=== PATIENT | male | born 1940 | race Caucasian/White ===

== ENCOUNTER → 2017-08-22 07:24 | Outpatient (CLI) | payer MEDICARE, OTHER, SELFPAY ==
--- NOTE | 2017-08-22 08:00 | CT_ITS ---
STUDY: CT CHEST/THORAX WITHOUT CONTRAST REASON FOR EXAM: Male, 76 years old. Lung nodule follow-up. RADIATION DOSAGE (If Supplied By Facility): CTDIvol = ( 11.49 ) mGy, DLP = ( 362.73 ) mGycm TECHNIQUE: Transaxial imaging was performed without the administration of intravenous contrast material. Multiplanar coronal and sagittal images were reformatted. Individualized dose optimization techniques were used for this CT. COMPARISON: CT chest/thorax February 21, 2017. FINDINGS: Stable mild elevation of the right diaphragm. There are stable emphysematous changes of the lungs, most prominent in the upper lung zones. There are additional sites of subsegmental peripheral air trapping as well. There is stable irregular scarring in the superolateral right upper lobe, and chronic interstitial changes are noted in the periphery of the mid and lower lung mercado.. Stable 6 mm nodule in the posterolateral inferior left lower lobe. There is no demonstrated pleural abnormality. Normal heart and pericardium. There are stable mild calcifications of the coronary arteries. There is a benign-appearing 6.5 x 6.0 x 13 mm mid to low precarinal lymph node. Just below this is a benign appearing 14 x 8 x 15 mm node. There is a 2.9 x 2.0 x 0.8 cm right subcarinal lymph node, grossly unchanged. There are other nonspecific, subcentimeter mediastinal lymph nodes. Normal hilar regions. Normal unenhanced pulmonary arteries. There is stable calcification in the aortic valve annulus. There are stable degenerative changes of the thoracic spine. There is no demonstrated abnormality of the visualized upper abdomen. CT/Chest without Contrast IMPRESSION: 1. Stable noncalcified nodule in the posterior lateral inferior left lower lobe, as well as stable superolateral right upper lobe scarring. 2. Stable emphysematous changes predominating in the lung apices, as well as scattered sites of subsegmental peripheral air trapping. 3. Benign-appearing low pretracheal/pericarinal lymph nodes again noted. No new adenopathy. Electronically Signed: Jose David Kingsley MD at 19:03 EDT , Service support ,
== END ==
PROVIDERS: Family Provider Family Medicine; PCP Family Medicine; Visit Provider Internal Medicine Critical Care Medicine
DX: R91.1 Solitary pulmonary nodule (principal); J84.10 Pulmonary fibrosis, unspecified
CPT/HCPCS: 71250

== ENCOUNTER → 2017-11-28 09:44 | Outpatient (CLI) | payer MEDICARE, OTHER, SELFPAY ==
--- NOTE | 2017-11-28 14:28 | PFTCOMP ---
COMPLETE PULMONARY FUNCTION TEST INTERPRETATION Brief HPI: Patient is a 77 year old male, currently under the care of myself, who presents to [facility] for complete pulmonary function tests secondary to diagnosis of bronchiectasis. Respiratory therapist reports good effort and reproducible results. Interpretation: Forced expiration spirometry shows no large airways obstructive ventilatory defect with an FEV1 of 92% predicted. There is no significant bronchodilator response by ATS criteria. Spirograms are of good quality and plateau slowly, indicating slowly emptying areas of the lungs. The respiratory flow volume loop shows decreased expiratory flow rates at high lung volumes consistent with small airways obstruction. Lung volumes by body plethysmography show a decreased total lung capacity at 4.16 L, 70% predicted. All other lung volumes are reduced symmetrically. Diffusion capacity by carbon monoxide is slightly decreased at 53% predicted. The airway resistance is normal. Compared to previous pulmonary function tests from 10/27/2016, there has been a significant improvement in FEV1 and DLCO by 13% and 39% respectively. Impression: Mild restrictive ventilatory defect with a symmetric reduction diffusing capacity. There has been significant improvement compared to previous study.
== END ==
PROVIDERS: Family Provider Family Medicine; PCP Family Medicine; Visit Provider Internal Medicine Critical Care Medicine
DX: J47.9 Bronchiectasis, uncomplicated (principal); R91.1 Solitary pulmonary nodule; J84.10 Pulmonary fibrosis, unspecified; J96.11 Chronic respiratory failure with hypoxia
CPT/HCPCS: 94060; 94726; 94729

== ENCOUNTER → 2018-08-14 13:42 | Outpatient (CLI) | payer MEDICARE, OTHER, SELFPAY ==
--- NOTE | 2018-08-14 13:45 | CT_ITS ---
STUDY: CT CHEST WITHOUT CONTRAST REASON FOR EXAM: Male, 77 years old. Lung nodule follow-up. Hypertension and diabetes. RADIATION DOSAGE (If Supplied By Facility): CTDIvol = ( 16.49 ) mGy, DLP = ( 617.93 ) mGycm TECHNIQUE: Transaxial imaging was performed without the administration of intravenous contrast material. Coronal and sagittal 2-D MPR Individualized dose optimization techniques were used for this CT. COMPARISON: CT chest 08/22/2017, 02/21/2017, 11/04/2016. FINDINGS: Supraclavicular: Normal. Body wall soft tissues: Normal. Upper abdomen: Mild pancreatic atrophy. No acute process. Osseous structures: No acute process. Mediastinum: Normal esophagus. No mass or lymphadenopathy. Cardiovascular: Minimal coronary calcifications, no cardiomegaly, mild aortic valve annulus calcifications, nonaneurysmal ectasia of the ascending aorta and proximal arch 3.5 cm, nondilated central pulmonary arteries. Lungs: Generalized hyperlucency and hyperinflation with features of centrilobular emphysema at the apices, scattered subpleural reticulation, in a pattern consistent with smoking history. There is a small focus of spiculated scarring in the right upper lobe, apical lateral, image 29, stable. There is mild biapical pleural scar, stable. Left lower lobe solid appearing oval pulmonary nodule measuring 5.5 mm, unchanged since prior imaging of 11/04/2016. There are several additional small scattered foci of groundglass or reticular opacity intraparenchymal that are not substantially changed since imaging of August 22, 2017. The process of scattered and partially confluent groundglass opacity seen in the lungs on the study of 11/04/2016 has completely resolved. The airways are normal. CT/Chest without Contrast IMPRESSION: Solitary pulmonary nodule the left lung base is unchanged compared to imaging of 11/04/2016. Additional small foci of parenchymal groundglass and reticular opacity are unchanged since 08/22/2017 and are most consistent with interstitial scarring. COPD/emphysema. Follow-up low dose chest CT is recommended in 1 year for continued surveillance purposes, lung cancer screening. Electronically Signed: Gianni Pena MD at 10:58 EDT Tel , Service support ,
== END ==
PROVIDERS: Family Provider Family Medicine; PCP Family Medicine; Referring Provider Internal Medicine Critical Care Medicine; Visit Provider Internal Medicine Critical Care Medicine
DX: R91.1 Solitary pulmonary nodule (principal)
CPT/HCPCS: 71250

== ENCOUNTER → 2018-11-27 | Outpatient (CLI) | payer MEDICARE, OTHER, SELFPAY ==
[2018-09-14 10:24] VITALS: BMI 26.3
--- NOTE | 2018-11-27 15:36 | PFTCOMP_ITS ---
COMPLETE PULMONARY FUNCTION TEST INTERPRETATION Brief HPI: Patient is a 78 year old male, currently under the care of myself, who presents to [facility] for complete pulmonary function tests secondary to diagnosis of bronchiectasis. Respiratory therapist reports good effort and reproducible results. Interpretation: Forced expiration spirometry shows a moderate large airways obstructive ventilatory defect with an FEV1 of 67% predicted. There is no significant bronchodilator response by strict ATS criteria. Spirograms are of good quality and plateau normally. The respiratory flow volume loop shows decreased expiratory flow rates at high lung volumes consistent with small airways obstruction. Lung volumes by body plethysmography show a normal total lung capacity at 5.08 L, 86% predicted. All other lung volumes are within normal limits. Diffusion capacity by carbon monoxide is decreased at 53% predicted. The airway resistance is normal. Compared to previous pulmonary function tests from 10/27/2016, there is been a significant improvement in FEV1 and DLCO by 13% and 39% respectively. Impression: Irreversible moderate large airways obstructive ventilatory defect with symmetric reduction in diffusing capacity, but there has been some improvement compared to previous study.
== END | disposition home or self-care (01) ==
LOC: PSN 08:54
PROVIDERS: Family Provider Family Medicine; PCP Family Medicine; Referring Provider Internal Medicine Critical Care Medicine; Visit Provider Internal Medicine Critical Care Medicine
DX: J47.9 Bronchiectasis, uncomplicated (principal); J84.10 Pulmonary fibrosis, unspecified; J96.11 Chronic respiratory failure with hypoxia
CPT/HCPCS: 94060; 94726; 94729

== ENCOUNTER → 2018-12-07 | Outpatient (CLI) | payer MEDICARE, OTHER, SELFPAY ==
[2018-09-14 10:24] VITALS: BMI 26.3
[2018-12-07 12:08] VITALS: PULSE 104; PULSE 109; PULSE 110; PULSE 113; PULSE 114; PULSE 87; PULSE 88; O2SAT 89; O2SAT 90; O2SAT 92; O2SAT 95; O2SAT 96
--- NOTE | 2018-12-07 14:50 | PCM.PSN.6M ---
PSN 6 Minute Walk Test - 6 Minute Walk Test 6 Minute Walk Test: 6 Minute Walk Test PSN:6-Minute Walk Test Start: 12/07/18 12:08 Freq: Status: Active Protocol: RESP.6MINW Document 12/07/18 12:08 [facility] (Rec: 12/07/18 12:12 [facility] [id number]) 6 Minute Walk Test Date Performed 12/07/18 Time Performed 11:00 Height 7 in Weight: 78.018 kg Weight in Pounds 172.[address]: Gary Huang Assistive device used: None Pre-test Oxygen Delivery Method Room Air Pulse Ox (%) 96 Pulse Rate (60-100 beats/min) 87 Dyspnea Deepthi Scale (0-10) 0 1st minute Oxygen Delivery Method Room Air Pulse Ox (%) 95 Pulse Rate (60-100 beats/min) 104 H Dyspnea Deepthi Scale (0-10) 1 Number of Rests Taken 0 2nd minute Oxygen Delivery Method Room Air Pulse Ox (%) 92 Pulse Rate (60-100 beats/min) 110 H Dyspnea Deepthi Scale (0-10) 1 Number of Rests Taken 0 3rd minute Oxygen Delivery Method Room Air Pulse Ox (%) 90 Pulse Rate (60-100 beats/min) 114 H Dyspnea Deepthi Scale (0-10) 2 Number of Rests Taken 0 4th minute Oxygen Delivery Method Room Air Pulse Ox (%) 90 Pulse Rate (60-100 beats/min) 110 H Dyspnea Deepthi Scale (0-10) 2 Number of Rests Taken 0 5th minute Oxygen Delivery Method Room Air Pulse Ox (%) 89 Pulse Rate (60-100 beats/min) 109 H Dyspnea Deepthi Scale (0-10) 2 Number of Rests Taken 0 6th minute Oxygen Delivery Method Room Air Pulse Ox (%) 89 Pulse Rate (60-100 beats/min) 113 H Dyspnea Deepthi Scale (0-10) 2 Number of Rests Taken 0 Post-test Oxygen Delivery Method Room Air Pulse Ox (%) 96 Pulse Rate (60-100 beats/min) 88 Dyspnea Deepthi Scale (0-10) 0 Full Laps Walked 17 Partial Lap, Number of Tiles Walked 10 Total Distance Walked (ft) 1013 - Interpretation Interpretation: The patient was able to ambulate 1013 feet over the course of 6 minutes on room air with no assistive devices or breaks. The patient did have significant desaturation from a baseline of 96% to as low as 89% with some reflexive tachycardia. These signs are consistent with a respiratory limitation exercise tolerance. - Recommendations Recommendations: No supplemental oxygen is indicated at this time.
== END | disposition home or self-care (01) ==
LOC: PSN 10:46
PROVIDERS: Family Provider Family Medicine; PCP Family Medicine; Referring Provider Internal Medicine Critical Care Medicine; Visit Provider Internal Medicine Critical Care Medicine
DX: J47.9 Bronchiectasis, uncomplicated (principal); J84.10 Pulmonary fibrosis, unspecified
CPT/HCPCS: 94618

== ENCOUNTER → 2018-12-11 | Outpatient (CLI) | payer MEDICARE, OTHER, SELFPAY ==
[2018-12-11 09:45] VITALS: BMI 26.1
== END | disposition home or self-care (01) ==
LOC: PSN 10:45
PROVIDERS: Family Provider Family Medicine; PCP Family Medicine; Referring Provider Nurse Practitioner Acute Care; Visit Provider Nurse Practitioner Acute Care
DX: J47.9 Bronchiectasis, uncomplicated (principal)
CPT/HCPCS: 94667

== ENCOUNTER → 2019-05-02 11:21 | Outpatient (CLI) | payer MEDICARE, OTHER, SELFPAY ==
[2019-05-02 10:53] VITALS: BMI 26.1
[2019-05-02 12:19] LABS: Anion Gap 6 (5-15); BUN 15 mg/dL (7-18); BUN/Creat Ratio 11.4 RATIO (10-20); Calcium,Total 8.8 mg/dL (8.5-10.1); Chloride 107 mmol/L (98-107); Creatinine, Serum 1.32 mg/dL (0.70-1.30); EST Glomerular Filtration Rate 56 mL/min (>60); Est Glom Filt Rate - Afr Amer 67 mL/min (>60); Glucose 149 mg/dL (74-106); Potassium 3.9 mmol/L (3.5-5.1); Sodium Level 140 mmol/L (136-145)
== END ==
PROVIDERS: Family Provider Family Medicine; PCP Family Medicine; Referring Provider Nurse Practitioner Acute Care; Visit Provider Nurse Practitioner Acute Care
DX: R06.02 Shortness of breath (principal)
CPT/HCPCS: 36415; 80048

== ENCOUNTER → 2019-05-08 11:42 | Outpatient (CLI) | payer MEDICARE, OTHER, SELFPAY ==
[2019-05-02 10:53] VITALS: BMI 26.1
[2019-05-08 11:55] LABS: Hematocrit 49.3 % (40-54); Hemoglobin 16.3 g/dL (13.0-16.5); Mean Corp Hgb Conc 33.1 g/dL (32-36); Mean Corpuscular Hgb 32.3 pg (27.0-32.0); Mean Corpuscular Volume 97.8 fL (80-94); Mean Platelet Vol. 8.8 fl (6.2-12.0); Platelet Count 231 K/mm3 (150-450); RBC Distribution Width CV 13.2 % (11.6-14.6); RBC Distribution Width SD 47.4 fl (35.1-43.9); Red Blood Count 5.04 M/mm3 (4.6-6.2)
[2019-05-08 12:07] LABS: Anion Gap 6 (5-15); BUN 24 mg/dL (7-18); BUN/Creat Ratio 15.7 RATIO (10-20); Calcium,Total 8.5 mg/dL (8.5-10.1); Chloride 103 mmol/L (98-107); Creatinine, Serum 1.53 mg/dL (0.70-1.30); EST Glomerular Filtration Rate 47 mL/min (>60); Est Glom Filt Rate - Afr Amer 57 mL/min (>60); Glucose 245 mg/dL (74-106); Potassium 4.2 mmol/L (3.5-5.1); Sodium Level 136 mmol/L (136-145)
== END ==
PROVIDERS: Nurse Practitioner Acute Care; Family Provider Family Medicine; PCP Family Medicine; Referring Provider Internal Medicine Critical Care Medicine; Visit Provider Internal Medicine Critical Care Medicine
DX: R53.83 Other fatigue (principal)
CPT/HCPCS: 36415; 80048; 85027

== ENCOUNTER → 2020-04-09 13:24 | Outpatient (CLI) | payer MEDICARE, OTHER, SELFPAY ==
[2020-03-24 13:04] VITALS: BMI 26.3
[2020-04-09 13:45] VITALS: PULSE 100; PULSE 102; PULSE 105; PULSE 107; PULSE 109; PULSE 115; O2SAT 88; O2SAT 89; O2SAT 90; O2SAT 91; O2SAT 92; O2SAT 93; O2SAT 95
--- NOTE | 2020-04-09 14:00 | CPS ---
At the 5 minute denny pt was 88% on room air. Pt was placed back on his own portable O2 tank at 2 lpm pulse dose. Pt saturation came up to 93%Remainder of walk was on 2 lpm pulse dose. Pt stated he usually wears between 2-4lpm pulse dose.
--- NOTE | 2020-04-10 13:22 | WT_ITS ---
PSN 6 Minute Walk Test - 6 Minute Walk Test 6 Minute Walk Test: 6 Minute Walk Test PSN:6-Minute Walk Test Start: 04/09/20 13:56 Freq: Status: Active Protocol: RESP.6MINW Document 04/09/20 13:45 [facility] (Rec: 04/09/20 14:03 [facility] [id number]) 6 Minute Walk Test Date Performed 04/09/20 Time Performed 13:45 Height 5 ft 8 in Weight: 160 lb Weight in Pounds 160.[address]: Dr Huang Assistive device used: None Pre-test Oxygen Delivery Method Room Air Pulse Ox (%) 93 Pulse Rate (60-100 beats/min) 100 Dyspnea Deepthi Scale (0-10) 0 Exertion Deepthi Scale (6-20) 6 1st minute Oxygen Delivery Method Room Air Pulse Ox (%) 92 Pulse Rate (60-100 beats/min) 109 H 2nd minute Oxygen Delivery Method Room Air Pulse Ox (%) 90 Pulse Rate (60-100 beats/min) 105 H 3rd minute Oxygen Delivery Method Room Air Pulse Ox (%) 89 Pulse Rate (60-100 beats/min) 109 H 4th minute Oxygen Delivery Method Room Air Pulse Ox (%) 90 Pulse Rate (60-100 beats/min) 109 H 5th minute Oxygen Delivery Method Room Air Pulse Ox (%) 88 Pulse Rate (60-100 beats/min) 115 H Dyspnea Deepthi Scale (0-10) 2 Exertion Deepthi Scale (6-20) 11 6th minute Oxygen Flow Rate (L/min) (L/min) 2 Oxygen Delivery Method Nasal Cannula Pulse Ox (%) 91 Pulse Rate (60-100 beats/min) 107 H Dyspnea Deepthi Scale (0-10) 2 Exertion Deepthi Scale (6-20) 11 Post-test Oxygen Flow Rate (L/min) (L/min) 2 Oxygen Delivery Method Nasal Cannula Pulse Ox (%) 95 Pulse Rate (60-100 beats/min) 102 H Full Laps Walked 16 Partial Lap, Number of Tiles Walked 0 Total Distance Walked (ft) 944 04/09/20 14:00 Cardiopulmonary Services by Sybil Payan At the 5 minute denny pt was 88% on room air. Pt was placed back on his own portable O2 tank at 2 lpm pulse dose. Pt saturation came up to 93%Remainder of walk was on 2 lpm pulse dose. Pt stated he usually wears between 2-4lpm pulse dose. Initialized on 04/09/20 14:00 - END OF NOTE - Interpretation Interpretation: The patient ambulated 944 feet over the course of 6 minutes beginning on room air without assistive devices. Pretesting oxygen saturation was noted to be 93% on room air. With ambulation, the olya oxygen saturation was 88%. 2 L/min of pulse dose supplemental oxygen was applied and the patient was able to complete the remainder of the test while maintaining appropriate oxygen saturations. - Recommendations Recommendations: 2 L/min of pulsed dose supplemental oxygen should be utilized with exertion.
== END ==
PROVIDERS: PCP Family Medicine; Referring Provider Internal Medicine Critical Care Medicine; Visit Provider Internal Medicine Critical Care Medicine
DX: J96.11 Chronic respiratory failure with hypoxia (principal); J84.10 Pulmonary fibrosis, unspecified
CPT/HCPCS: 94618

== ENCOUNTER → 2020-04-17 12:41 | Outpatient (CLI) | payer MEDICARE, OTHER, SELFPAY ==
[2020-03-24 13:04] VITALS: BMI 26.3
--- NOTE | 2020-04-17 13:50 | ECHOCS_ITS ---
Version 2 Reason For Study: REBECCA, IONA Procedure This was a 2D Doppler, Color Flow transthoracic echocardiogram. The study was technically difficult. Exam performed in department. Left Ventricle Normal LV size. Left ventricular systolic function is normal. The estimated ejection fraction is 60 %. Stage 1 diastolic dysfunction. No regional wall motion abnormalities noted. Right Ventricle Normal RV size. Normal systolic function. Atria Normal left atrium. Normal right atrium. Mitral Valve Normal mitral valve. Tricuspid Valve Normal tricuspid valve. Unable to estimate RV systolic pressure due to insufficient tricuspid regurgitant envelope. Aortic Valve Trisinus/trileaflet aortic valve. Pulmonic Valve Normal pulmonic valve. Great Vessels Normal aortic root. The pulmonary artery is normal size. Normal inferior vena cava. Pericardium/Pleural No pericardial effusion. Medication 22 gauge I.V. with prn adaptor inserted into right arm. Performed a rapid injection of agitated mix of 9 cc saline and 1cc air to assess for atrial septal defect. Diluted definity 2.5ml given slow IV push to enhance endocardial definition. MMode/2D Measurements & Calculations LVIDd: 4.0 cm IVSd: 0.95 cm LVOT diam: 2.1 cm LVIDs: 2.4 cm LVPWd: 1.1 cm RVDd: 2.9 cm FS: 41.2 % LVOT area: 3.3 cm2 Ao root diam: 3.4 cm LAV(MOD-bp): 31.1 ml LA A4 area: 14.0 cm2 LAV(MOD-bp) Indexed: 16.8 ml/m2 LAV(MOD-sp2): 30.2 ml LAV(MOD-sp4): 30.8 ml LA dimension(2D): 3.8 cm RA A4 area: 13.5 cm2 Doppler Measurements & Calculations MV E max sandeep: 42.7 cm/sec Lat Peak E' Sandeep: 8.3 cm/sec Med Peak E' Sandeep: 4.6 cm/sec MV A max sandeep: 75.9 cm/sec E/E' lat: 5.1 E/E' med: 9.3 MV E/A: 0.56 Ao V2 max: 153.2 cm/sec LV V1 max: 77.3 cm/sec PA V2 max: 88.7 cm/sec Ao max P.4 mmHg LV V1 max P.4 mmHg ANN(V,D): 1.7 cm2 Interpretation Summary Normal LV size. Left ventricular systolic function is normal. The estimated ejection fraction is 60 %. Stage 1 diastolic dysfunction. Contrast injection was performed. Ordering Physician: Gary Huang Referring Physician: Nicolas Castro Performed By: Cathy Delong RDCS
--- NOTE | 2020-04-17 16:03 | PFTCOMP_ITS ---
COMPLETE PULMONARY FUNCTION TEST INTERPRETATION Brief HPI: Patient is an 79 year old male, currently under the care of myself, who presents to [facility] for complete pulmonary function tests secondary to diagnosis of pulmonary hypertension. Respiratory therapist reports good effort and reproducible results. Interpretation: Forced expiration spirometry shows a mild large airways obstructive ventilatory defect with an FEV1 of 74% predicted. There is no significant bronchodilator response by strict ATS criteria. Spirograms are of good quality and plateau slowly, indicating slowly emptying areas of the lungs. The respiratory flow volume loop shows decreased expiratory flow rates at all lung volumes consistent with airway obstruction. Lung volumes by body plethysmography show a normal total lung capacity at 5.5 L, 93% predicted. All other lung volumes are within normal limits. Diffusion capacity by carbon monoxide is at the lower limit of normal at 63% predicted. The airway resistance is normal. Compared to previous pulmonary function tests from 11/27/2018, there is a significant improvement in FVC and DLCO by 29% and 12% respectively. Impression: Irreversible mild large airways obstructive ventilatory defect with a symmetric reduction diffusion capacity and significant improvement compared to previous study.
== END ==
PROVIDERS: PCP Family Medicine; Referring Provider Internal Medicine Critical Care Medicine; Visit Provider Internal Medicine Critical Care Medicine
DX: I27.21 Secondary pulmonary arterial hypertension (principal); J84.10 Pulmonary fibrosis, unspecified; J96.11 Chronic respiratory failure with hypoxia
CPT/HCPCS: 93306; 94060; 94726; 94729; Q9957; A4216; C8929

== ENCOUNTER 2022-02-11 12:10 | Emergency (ER) | payer MEDICARE, OTHER, SELFPAY ==
[2022-02-11 12:12] VITALS: BP 188/104; PULSE 85; RESP 16; TEMP 36.6; O2SAT 95; BMI 24.4
--- NOTE | 2022-02-11 12:15 | EDS_ITS ---
HPI History of Present Illness Chief Complaint: Neuro S/Sx Detail of Chief Complaint: Ischial droop right side Informant: patient and spouse/S.O. Onset/Context/Timing Onset: Yesterday Context: Sudden Onset Timing: Continuous Quality: Difficult drinking out of glass, facial asymmetry Location: Right side Current Severity: Moderate Maximum Severity: Moderate Worsened by: Nothing Relieved by: Nothing Associated Symptoms Associated Symptoms: No rash or complaint of ear pain to suggest Bairoil Liao syndrome. Narrative Narrative: Patient is an 81-year-old male with history of pulmonary fibrosis, benign prostatic hypertrophy, type 2 diabetes on insulin with poor control who presents with facial droop that started last evening. He denies visual, ocular auditory symptoms. No trouble with speech or swallowing. He denies symptoms in his upper or lower extremities. He denies cardiac respiratory symptoms. He denies history of TIA or CVA. There is a history of hypertension. Prior similar symptoms: No Recent Illness/Hospitalization: No [facility] Medical History (Updated 02/11/22 @ 12:[address] Owen Padilla MD) Chronic hypoxemic respiratory failure TRUJILLO (dyspnea on exertion) GERD (gastroesophageal reflux disease) Hypoxemia Long-term current use of steroids Lung nodule Pneumonia Pulmonary fibrosis Rheumatoid arthritis Type 2 diabetes mellitus Home Medications Lactobacills gasseri-Bifidobac bifidum,longum 1.5 billion cell capsule (Wantworthy) 1 cap PO QDAY 05/18/17 [History Last Taken Unknown] aspirin 81 mg tablet,delayed release (Adult Aspirin Regimen) 81 mg PO QDAY 05/18/17 [History Last Taken Unknown] losartan 50 mg tablet (Cozaar) 50 mg PO QDAY 05/18/17 [History Last Taken Unknown] metformin 500 mg tablet (Glucophage) 500 mg PO QDAY 05/18/17 [History Last Taken Unknown] multivitamin (Multiple Vitamins tablet) 1 tab PO QDAY 05/18/17 [History Last Taken Unknown] potassium chloride 10 mEq tablet,extended release (K-Tab) 10 meq PO QDAY 05/18 [History Last Taken Unknown] sitagliptin 100 mg tablet (Januvia) 100 mg PO QDAY 05/18/17 [History Last Taken Unknown] tamsulosin 0.4 mg capsule (Flomax) 0.4 mg PO QDAY 05/18/17 [History Last Taken Unknown] Acapella #1 ea 06/19/17 [Rx Last Taken Unknown] insulin glargine 100 unit/mL (3 mL) subcutaneous pen (Basaglar KwikPen U-100 Insulin) 38 unit subcut QDAY 08/29/17 [History Last Taken Unknown] ketoconazole 2 % shampoo 1 applic topical 2XW PRN 08/29/17 [History Last Taken Unknown] triamcinolone acetonide 0.1 % topical cream 1 applic topical QDAY PRN PCP 08/29/17 [History Last Taken Unknown] insulin aspart U-100 100 unit/mL subcutaneous solution (Novolog U-100 Insulin aspart) 4 unit subcut QACDINNER 09/14/18 [History Last Taken Unknown] PEP device #1 ea 12/11/18 [Rx Last Taken Unknown] prednisone 2.5 mg tablet 2.5 mg PO DAILY 12/11/18 [History Last Taken Unknown] benzonatate 200 mg capsule 200 mg PO TID PRN cough #90 caps 05/10/21 [Rx Last Taken Unknown] erythromycin 5 mg/gram (0.5 %) eye ointment 1 applic RIGHT EYE QHS #3.5 grams 02/11/22 [Rx Last Taken Unknown] Allergy/AdvReac Type Severity Reaction Status Date / Time acetaminophen AdvReac Mild Nausea Verified 02/11/22 12:15 [From Darvocet-N] oxycodone [From Percocet] AdvReac Mild Nausea Verified 02/11/22 12:15 propoxyphene AdvReac Mild Nausea Verified 02/11/22 12:15 [From Darvocet-N] [id number] Reductase AdvReac Mild Other - Verified 02/11/22 12:15 Inhibitor muscle [Mamgfdm-Wbl-Rpv Reductase weakness Inhibitor] Surgical History Hernia Social History (Updated 02/11/22 @ 12:[address] Owen Padilla MD) household members: spouse Smoking Status: Former smoker quit date: 05/22/89 pack-years: 30 how long ago did patient quit smokin second hand exposure: No alcohol intake: never substance use type: does not use ROS ROS ED Constitutional Constitutional ED: Denies chills, fever(s), subjective, sweats or weight loss Eyes Eyes: Denies blurry vision, change in vision or diplopia ENT ENT ED: Reports other Details: He denies drainage from the ear or rash involving the ear or face. ; Denies ear pain, rhinorrhea or sore throat Cardiovascular Cardiovascular: Denies chest pain, palpitations or racing heartbeat Respiratory/Chest Respiratory/Chest: Denies cough, dyspnea or dyspnea on exertion Gastrointestinal Gastrointestinal: Denies abdominal pain, nausea or vomiting Musculoskeletal Musculoskeletal: Denies arthralgias, back pain, myalgias or neck pain Neurologic Neurologic: Reports paresthesias; Denies headache(s) or weakness EXAM Physical Exam Const Vital Signs: 02/11/22 12:12 Temperature 97.9 F Temperature Source Temporal Pulse Rate 85 Respiratory Rate 16 Blood Pressure 188/104 H Blood Pressure Mean 132 Pulse Ox 95 Oxygen Delivery Method Room Air Positive well nourished and well developed General Appearance ED: well developed and NAD; Negative for cyanotic, diaphoretic or pallor HEENT Reports TM's clear and moist mucous membranes HEENT Narrative: Patient has facial asymmetry. The wrinkles are more prominent on the left side versus right. There is a lid lag with blinking of his eyes on the right. He has a facial droop on the right. There is no rash noted. There is no abnormality external auditory canal. Negative for trauma Tympanic Membrane ED: Yes TM's clear Eyes PERRL and EOMs intact bilaterally General Eye ED: Negative for pale conjunctiva or scleral icterus Neck no lymphadenopathy, supple and no JVD Neck Narrative: There is no carotid bruits noted right or left. Chest Wall inspection of chest normal and palpation of chest normal Resp normal respiratory effort and clear to auscultation bilaterally Cardio regular rate, regular rhythm, S1 normal heart sound, S2 normal heart sound and no murmurs GI normal to inspection, nondistended, normoactive bowel sounds, non-tender, non- distended and hepatosplenomegaly Neuro oriented x3, No CN's II-XII intact bilaterally and No no sensory deficits noted Neuro Narrative: Facial asymmetry on the right consistent with Contreras's palsy. Sensorium / Orientation: alert; Negative for orientation impaired, lethargic or stuporous Motor Exam: strength 5/5 throughout Psych mental status grossly normal Skin no rashes or lesions noted, no wounds and skin turgor normal General Skin Exam: Negative for jaundice or pallor MDM MDM MDM Narrative Medical decision making narrative: Differential diagnosis be atypical presentation for stroke, Contreras's palsy Bairoil Liao syndrome. Since patient has no ear pain or lesions Bairoil Liao has been ruled out. Since patient findings are limited to the face only and there is no sparing of the forehead he was treated for Contreras's palsy. Since he is a poorly controlled diabetic he was not discharged with burst of steroids. Since there is no skin lesions he was not prescribed antiviral medication. Discharge Plan Triage Chief Complaint: Neuro S/Sx ED Provider: Owen Padilla Dx/Rx/DC Orders Clinical Impression: Right-sided Contreras's palsy Instructions: ED Contrreas's Palsy Prescriptions: New erythromycin 5 mg/gram (0.5 %) ointment 1 applic RIGHT EYE QHS Qty: 3.5 1RF Rx Instructions: After instilling ointment tape right eyelid shot No Action metformin [Glucophage] 500 mg tablet 500 mg PO QDAY sitagliptin [Januvia] 100 mg tablet 100 mg PO QDAY losartan [Cozaar] 50 mg tablet 50 mg PO QDAY potassium chloride [K-Tab] 10 mEq tablet extended release 10 meq PO QDAY tamsulosin [Flomax] 0.4 mg capsule,extended release 24hr 0.4 mg PO QDAY L. gasseri-B. bifidum-B longum [Wantworthy] 1.5 billion cell capsule 1 cap PO QDAY aspirin [Adult Aspirin Regimen] 81 mg tablet,delayed release (DR/EC) 81 mg PO QDAY multivitamin [Multiple Vitamins] tablet 1 tab PO QDAY insulin glargine [Basaglar KwikPen U-100 Insulin] 100 unit/mL (3 mL) insulin pen 38 unit SC QDAY triamcinolone acetonide 0.1 % cream 1 applic TOPICAL QDAY PRN (Reason: PCP) ketoconazole 2 % shampoo 1 applic TOPICAL 2XW PRN Novolog U-100 Insulin aspart 100 unit/mL solution 4 unit SC QACDINNER prednisone 2.5 mg tablet 2.5 mg PO DAILY (DME) PEP device 0 .ROUTE .MEDSUPPLY Qty: 1 0RF Rx Instructions: with training benzonatate 200 mg capsule 200 mg PO TID PRN (Reason: cough) Qty: 90 0RF (DME) Acapella 0 .MEDSUPPLY Qty: 1 0RF Rx Instructions: As directed Primary Care Provider: Nicolas Castro Referrals: Nicolas Castro MD [Primary Care Provider] - 1-2 Weeks Activity Restrictions/Additional Instructions: 1. Instill ophthalmic ointment into the right eye at night and tape your eyelid shut. You will need to do this until you are eyelid is able to close on its own. This to prevent injury to your eye. 2. Instill artificial tears every 1-2 hours while awake right eye Disposition Disposition: Home, Self Care
[2022-02-11 12:21] VITALS: BP 155/95; PULSE 84; RESP 16; O2SAT 93; BMI 24.4
== END 2022-02-11 12:43 | disposition home or self-care (01) ==
PROVIDERS: Emergency Provider Emergency Medicine; PCP Family Medicine; Visit Provider Emergency Medicine
DX: G51.0 Bell's palsy (principal); E11.9 Type 2 diabetes mellitus without complications; I10 Essential (primary) hypertension; Z87.891 Personal history of nicotine dependence; Z79.82 Long term (current) use of aspirin; Z79.899 Other long term (current) drug therapy; Z79.84 Long term (current) use of oral hypoglycemic drugs; Z79.52 Long term (current) use of systemic steroids
CPT/HCPCS: 99282

== ENCOUNTER 2022-04-12 12:34 | Emergency (ER) | payer MEDICARE, OTHER, SELFPAY ==
[2022-04-12 12:35] VITALS: PULSE 52; RESP 16; TEMP 36.2; O2SAT 98; BMI 24.3
--- NOTE | 2022-04-12 14:44 | RAD_ITS ---
STUDY: XR Chest 1 View 04/12/2022 3:07 PM REASON FOR EXAM: Male, 81 years old. CHEST PAIN weakness COMPARISON: None TECHNIQUE: XR Chest 1 View FINDINGS: There is no demonstrated pleural abnormality. Normal heart size. Normal mediastinum. Normal regina. Prominent appearing increased interstitial lung markings. Normal visualized pulmonary arteries. There is atherosclerotic calcification of the aortic arch with tortuosity. There are diffuse degenerative changes of the visualized thoracic spine. There is degenerative osteoarthritis of the bilateral shoulders. There is no demonstrated abnormality of the visualized soft tissue structures of the upper abdomen. RAD/Chest 1 View (Portable) IMPRESSION: There are no acute findings. Electronically Signed: Jose Valdivia MD at 15:42 EST ,
--- NOTE | 2022-04-12 14:45 | EKG12_ITS ---
Test Reason : GENERAL Blood Pressure : / mmHG Vent. Rate : 089 BPM Atrial Rate : 089 BPM P-R Int : 202 ms QRS Dur : 090 ms QT Int : 366 ms P-R-T Axes : 029 -14 -11 degrees QTc Int : 445 ms Normal sinus rhythm Minimal voltage criteria for LVH, may be normal variant ( R in aVL ) Nonspecific ST abnormality Abnormal ECG Confirmed by KIRA AREVALO, SONDRA ([id number]), publication editor CHARAN CERDA ([id number]) on 04/13/2022 9:20:20 AM Referred By: Confirmed By:SONDRA MALONE MD
--- NOTE | 2022-04-12 14:46 | EX.ED.DYSGE1 ---
HPI History of Present Illness Chief Complaint: General Illness Informant: patient and family Onset/Context/Timing Onset: Days Context: Gradual Onset Current Severity: Mild Maximum Severity: Mild Narrative Narrative: 81-year-old male history of pulmonary fibrosis and insulin-dependent diabetes. states he does not listen and is not taking care of himself. She states he does not check his blood sugars enough. She does not believe he is taking his medications as prescribed. And states he is not drinking enough water. He denies any complaints. She wants him evaluated. He denies any headache, chest pain, abdominal pain. He denies any nausea, vomiting or diarrhea. He denies any fever or melena. He denies any dysuria. Prior similar symptoms: No Recent Illness/Hospitalization: No [facility] Medical History (Updated 04/12/22 @ 17:[address] Josh Pedro MD) Chronic hypoxemic respiratory failure TRUJILLO (dyspnea on exertion) GERD (gastroesophageal reflux disease) Hypoxemia Long-term current use of steroids Lung nodule Pneumonia Pulmonary fibrosis Rheumatoid arthritis Type 2 diabetes mellitus Home Medications aspirin 81 mg tablet,delayed release (Adult Aspirin Regimen) 81 mg PO QDAY 05/18/17 [History Last Taken Unknown] metformin 500 mg tablet (Glucophage) 500 mg PO QDAY 05/18/17 [History Last Taken Unknown] potassium chloride 10 mEq tablet,extended release (K-Tab) 10 meq PO QDAY 05/18/17 [History Last Taken Unknown] sitagliptin phosphate 100 mg tablet (Januvia) 100 mg PO QDAY 05/18/17 [History Last Taken Unknown] tamsulosin 0.4 mg capsule (Flomax) 0.4 mg PO QDAY 05/18/17 [History Last Taken Unknown] Acapella #1 ea 06/19/17 [Rx Last Taken Unknown] ketoconazole 2 % shampoo 1 applic topical 2XW PRN 08/29/17 [History Last Taken Unknown] PEP device #1 ea 12/11/18 [Rx Last Taken Unknown] prednisone 2.5 mg tablet 2.5 mg PO DAILY 12/11/18 [History Last Taken Unknown] insulin aspart U-100 100 unit/mL subcutaneous solution (Novolog U-100 Insulin aspart) 48 unit subcut HS 02/24/22 [History Last Taken Unknown] insulin glargine 100 unit/mL (3 mL) subcutaneous pen (Basaglar KwikPen U-100 Insulin) 48 unit subcut QDAY 02/24/22 [History Last Taken Unknown] Allergy/AdvReac Type Severity Reaction Status Date / Time acetaminophen AdvReac Mild Nausea Verified 04/12/22 12:38 [From Darvocet-N] oxycodone [From Percocet] AdvReac Mild Nausea Verified 04/12/22 12:38 propoxyphene AdvReac Mild Nausea Verified 04/12/22 12:38 [From Darvocet-N] Dgviume-SND-MvZ Reductase AdvReac Mild Other - Verified 04/12/22 12:38 Inhibitor muscle [Tqddzcc-Fkp-Uyy Reductase weakness Inhibitor] Surgical History Hernia Social History household members: spouse Smoking Status: Former smoker quit date: 05/22/89 pack-years: 30 how long ago did patient quit smokin second hand exposure: No alcohol intake: never substance use type: does not use ROS ROS ED ROS Narrative Patient denies being ill. Review of Systems ROS Unobtainable: Denies due to encephalopathy Constitutional Constitutional ED: Denies chills or fever(s) Eyes Eyes: Denies blurry vision ENT ENT ED: Denies ear pain Cardiovascular Cardiovascular: Denies chest pain Respiratory/Chest Respiratory/Chest: Denies cough or dyspnea Gastrointestinal Gastrointestinal: Denies abdominal pain, diarrhea, melena, nausea or vomiting Genitourinary Genitourinary ED: Denies dysuria or hematuria Musculoskeletal Musculoskeletal: Denies arthralgias Integumentary Denies abscess Neurologic Neurologic: Denies headache(s) Psychiatric Psychiatric: Denies anxiety Endocrine Endocrinology: Denies cold intolerance Hematologic/Lymphatic Hematologic/Lymphatic: Reports none Allergic/Immunologic Allergic/Immunologic ED: Denies mouth swelling or tongue swelling EXAM Physical Exam Narrative Exam Narrative: Well-appearing 81-year-old male. Vital signs stable afebrile. Pulse ox 90% on 2 L no signs hypoxia. H EENT exam mild dry mucous members. Otherwise unremarkable. Pupils are reactive light his motions are intact. No facial droop. Normal speech. Atraumatic. Neck nontender. Lungs clear to auscultation bilaterally. Heart regular rhythm rate about 55 no murmur. Chest wall nontender. Abdomen soft nontender. Moving all 4 extremities. 5 out of 5 airport operations specialist strength. Dorsi plantarflexion intact. Nontender. No edema. Back nontender. Neurologically is awake and alert with no focal motor deficits. Const Vital Signs: 04/12/22 12:35 04/12/22 14:37 04/12/22 16:11 Temperature 97.1 F L Temperature Source Temporal Pulse Rate 52 L 98 Respiratory Rate 16 14 Respiratory Effort Normal Respiratory Pattern Normal Blood Pressure 142/59 H Blood Pressure Mean 86 Pulse Ox 98 99 Oxygen Delivery Method Nasal Cannula Oxygen Flow Rate (L/min) 2 Positive well nourished and well developed; Negative for obese, cachectic, contractures or unkempt General Appearance ED: well developed and NAD; Negative for unkempt, cachectic, contractures, cyanotic or diaphoretic Nutritional Appearance: Negative for cachectic or obese HEENT Reports moist mucous membranes; Denies TM's clear or dry mucous membranes Negative for trauma or tenderness Tympanic Membrane ED: Negative for TM's clear Mouth ED: No dry mucous membranes Mouth: No dry mucous membranes Eyes EOMs intact bilaterally General Eye ED: Negative for pale conjunctiva or scleral icterus Neck no lymphadenopathy, supple and no JVD General: Negative for tenderness Lymph Lymphatic: Negative for other Chest Wall inspection of chest normal and palpation of chest normal Chest: Negative for other Resp normal respiratory effort and clear to auscultation bilaterally Effort and Inspection: Negative for retractions Auscultation: Negative for rales, rhonchi, wheezes or diminished lung sounds Cardio regular rhythm, S1 normal heart sound, S2 normal heart sound and no murmurs; Negative for regular rate Rate: bradycardia Rhythm: Negative for abnormal rhythm GI normal to inspection, nondistended, normoactive bowel sounds, non-tender, non-distended and no masses Inspection: Negative for abdominal distention Auscultation: normoactive bowel sounds Palpation: soft; Negative for tender, guarding or mass Back/Spine no CVA tenderness General Back: Negative for CVA tenderness Cervical Spine: Negative for cervical spine tenderness Thoracic Spine / Upper Back: Negative for thoracic spinal tenderness Lumbar Spine / Lower Back: Negative for lumbar spinal tenderness Extremity normal to inspection General Extremety ED: Negative for edema or tenderness General Extremity: Negative for edema Neuro oriented x3 and CN's II-XII intact bilaterally Sensorium / Orientation: alert; Negative for orientation impaired, lethargic or stuporous Motor Exam: strength 5/5 throughout; Negative for general weakness Psych mental status grossly normal Appearance: Negative for unkempt Attitude: No agitated Mood & Affect: Negative for depressed, anxious or tearful Skin no rashes or lesions noted and no wounds General Skin Exam: Negative for elasticity normal Lesions: No lesion noted Rashes: No rashes noted Trauma: Negative for abrasion Wounds: Negative for wounds noted MDM MDM MDM Narrative Medical decision making narrative: 81-year-old male no acute distress. Exam benign other than possibly mildly dehydrated. He has had no recent illness. His does not think he is taking care of himself well but his exam is benign. He is diabetic his blood sugar today is 217. Screening labs will be obtained. To be treated with IV fluids. Repeat exam patient doing well at 5:47 PM. I went over test results of both he and his . They are comfortable with him being discharged home with outpatient follow-up. Check his blood sugars. Increase his fluid intake. Lab Data Attestation: I reviewed the patient's lab results. Lab results narrative: Electrolytes is sodium 132 gap is 7 BUN and creatinine 28 1.48 consistent with mild dehydration. Glucose 188 on the CMP. Liver enzymes unremarkable. CBC shows a white count of 9.1 H&H of 15 and 46. Platelets of 211. Labs: Laboratory Results - last 24 hr 04/12/22 04/12/22 04/12/22 14:45 15:00 15:00 WBC 9.1 RBC 5.03 Hgb 15.9 Hct 46.5 MCV 92.4 MCH 31.6 MCHC 34.2 RDW Std Deviation 44.1 H RDW Coeff of Whitney 13.1 Plt Count 211 MPV 9.1 Immature Gran % (Auto) 1.600 H Neut % (Auto) 65.4 Lymph % (Auto) 12.3 L [place] % (Auto) 20.4 H Eos % (Auto) 0.0 Baso % (Auto) 0.3 Absolute Neuts (auto) 5.9 Absolute Lymphs (auto) 1.12 Nucleated RBC % 0 Differential Comment SEE COMMENT Platelet Estimate ADEQUATE RBC Morphology N CHROM Anisocytosis RARE Macrocytosis RARE Sodium 132 L Potassium 4.9 Chloride 100 Carbon Dioxide 25.0 Anion Gap 7 BUN 28 H Creatinine 1.48 H Estim Creat Clear Calc 37.23 Est GFR (MDRD) Af Amer 58 L Est GFR (MDRD) Non-Af 48 L BUN/Creatinine Ratio 18.9 Glucose 188 H Calcium 8.8 Total Bilirubin 1.00 AST 74 H ALT 43 Alkaline Phosphatase 142 H Total Protein 8.0 Albumin 3.2 Globulin 4.8 H Albumin/Globulin Ratio 0.7 L POC Glucose 217 H Radiography Chest X-Ray - ED: 1 View, Read by ED Physician, Heart, Lungs, Mediastinum, Bony Structures, No Acute Disease and Chronic Changes Diagnostic Testing: Clinical Impression(s) from Imaging Studies Chest X-Ray 04/12/22 14:44 IMPRESSION: There are no acute findings. Electronically Signed: Jose Valdivia MD at 15:42 EST , Chest x-ray, portable, single view interpreted by myself shows no acute abnormality. Normal cardiac silhouette. Chronic changes consistent with pulmonary fibrosis. No infiltrate. Rhythm Strip Rhythm Strip: Sinus Rhythm Rate: 89 Ectopy: None EKG Initial EKG: Attestation: I personally reviewed and interpreted this EKG as follows: Interpretation: Sinus Rhythm and No Acute Injury Pattern Comments: Pull off normal sinus rhythm rate 82 no acute signs of RI or ischemia. No dysrhythmia. Discharge Plan Triage Chief Complaint: General Illness ED Provider: Josh Pedro Dx/Rx/DC Orders Clinical Impression: Hyperglycemia due to diabetes mellitus, Acute dehydration Instructions: Dehydration Prescriptions: No Action metformin [Glucophage] 500 mg tablet 500 mg PO QDAY sitagliptin phosphate [Januvia] 100 mg tablet 100 mg PO QDAY potassium chloride [K-Tab] 10 mEq tablet extended release 10 meq PO QDAY tamsulosin [Flomax] 0.4 mg capsule,extended release 24hr 0.4 mg PO QDAY aspirin [Adult Aspirin Regimen] 81 mg tablet,delayed release (DR/EC) 81 mg PO QDAY ketoconazole 2 % shampoo 1 applic TOPICAL 2XW PRN (Reason: ) insulin glargine [Basaglar KwikPen U-100 Insulin] 100 unit/mL (3 mL) insulin pen 48 unit SC QDAY Novolog U-100 Insulin aspart 100 unit/mL solution 48 unit SC HS prednisone 2.5 mg tablet 2.5 mg PO DAILY (DME) PEP device 0 .ROUTE .MEDSUPPLY Qty: 1 0RF Rx Instructions: with training (DME) Acapella 0 .MEDSUPPLY Qty: 1 0RF Rx Instructions: As directed Primary Care Provider: Nicolas Castro Referrals: Nicolas Castro MD [Primary Care Provider] - 1-2 Weeks Activity Restrictions/Additional Instructions: Plenty of fluids and rest. You should be drinking at least 3 glasses of water a day. 8 ounce glasses. Check your blood sugars at least once if not twice daily at minimum. Take your medications as prescribed. Follow-up with your doctor. Disposition Disposition: Home, Self Care
[2022-04-12] MEDS: 0.9% Normal Saline 1,000 ML 1000 ML IV (14:59)
[2022-04-12 15:05] LABS: Bedside Glucose 217 mg/dL (74-106)
[2022-04-12 15:11] LABS: Absolute Lymphocyte Count 1.12 X10^3/uL (0.83-4.51); Absolute Neutrophil Count 5.9 X10^3/uL (2.0-7.7); Basophil# 0.03 X10^3/uL; Basophil% 0.3 % (0-1); Hematocrit 46.5 % (40-54); Hemoglobin 15.9 g/dL (13.0-16.5); Lymphocyte # 1.12 X10^3/ul (0.83-4.51); Lymphocyte % 12.3 % (19-41); Mean Corp Hgb Conc 34.2 g/dL (32-36); Mean Corpuscular Hgb 31.6 pg (27.0-32.0); Mean Corpuscular Volume 92.4 fL (80-94); Mean Platelet Vol. 9.1 fl (6.2-12.0); Monocyte# 1.86 X10^3/uL; Monocyte% 20.4 % (0-10); NRBC Flagged by Analyzer 0 % (0-5); Neutrophil # 5.94 X10^3/uL (2.7-7.7); Neutrophil % 65.4 % (47-70); POSITIVE DIFFERENTIAL YES; Platelet Count 211 K/mm3 (150-450); RBC Distribution Width CV 13.1 % (11.6-14.6); RBC Distribution Width SD 44.1 fl (35.1-43.9); Red Blood Count 5.03 M/mm3 (4.6-6.2); White Blood Count 9.1 K/mm3 (4.4-11.0)
[2022-04-12 15:47] LABS: ALB/GLOB Ratio 0.7 RATIO (0.9-2.4); AST(SGOT) 74 U/L (15-37); Alanine Aminotransfer ALT/SGPT 43 U/L (16-61); Albumin, Serum 3.2 g/dL (3.2-5.0); Alkaline Phosphatase 142 U/L (45-117); Anion Gap 7 (5-15); BUN 28 mg/dL (7-18); BUN/Creat Ratio 18.9 RATIO (10-20); Calcium,Total 8.8 mg/dL (8.5-10.1); Chloride 100 mmol/L (98-107); Creatinine, Serum 1.48 mg/dL (0.70-1.30); EST Glomerular Filtration Rate 48 mL/min (>60); Est Glom Filt Rate - Afr Amer 58 mL/min (>60); Estimated Creatinine Clearance 37.23 ml/min; Globulin 4.8 g/dL (2.2-4.2); Glucose 188 mg/dL (74-106); Potassium 4.9 mmol/L (3.5-5.1); Sodium Level 132 mmol/L (136-145)
[2022-04-12 16:11] VITALS: BP 142/59; PULSE 98; RESP 14; O2SAT 99
[2022-04-12 16:37] LABS: Differential Indicated SCAN CRITERIA MET
[2022-04-12 16:40] LABS: Anisocytosis RARE; Macrocytosis RARE; Platelet Estimate ADEQUATE (ADEQ); Red Cell Morphology N CHROM NORMAL (NORM C&C)
[2022-04-12 18:49] VITALS: BP 123/76; PULSE 82; RESP 20; O2SAT 96
== END 2022-04-12 18:58 | disposition home or self-care (01) ==
PROVIDERS: Emergency Provider Emergency Medicine; PCP Family Medicine; Visit Provider Emergency Medicine
DX: E11.65 Type 2 diabetes mellitus with hyperglycemia (principal); E86.0 Dehydration; Z87.891 Personal history of nicotine dependence; Z91.199 Patient's noncompliance with other medical treatment and regimen due to unspecified reason
CPT/HCPCS: 71045; 80053; 82962; 85025; 93005; 96360; 96361; 99284; J7030; A4216